=== PATIENT | male | born 1985 | race Two or more races ===

== ENCOUNTER 2017-01-07 19:04 | Emergency (ER) | payer SELFPAY ==
[~2017-01-07] VITALS: Ht 180.3 cm; Wt 72.6 kg
[2017-01-07 19:05] VITALS: BP 140/70
[2017-01-07 20:00] LABS: MEAN CORPUSCULAR HEMOGLOBIN 33.7 PG (27.0-31.0); MEAN CORPUSCULAR HGB CONC 36.3 G/DL (32.0-36.0); MEAN CORPUSCULAR VOLUME 93 FL (80-99); MEAN PLATELET VOLUME 7.1 FL (6.5-10.1); PLATELET COUNT 214 K/UL (150-450); RED BLOOD COUNT 4.69 M/UL (4.70-6.10); RED CELL DISTRIBUTION WIDTH 11.3 % (11.6-14.8); WHITE BLOOD COUNT 21.5 K/UL (4.8-10.8)
--- NOTE | 2017-01-07 20:01 | Emergency Room Report ---
History of Present Illness General Chief Complaint: General Complaint Source: EMS (LOLA CARMICHAEL D.O.) Present Illness HPI Patient presents by paramedics and police department for bizarre behavior Patient himself is nonverbal with the staff or myself This does limit the history of present illness Patient makes eye contact and essentially stares off to the right side Unknown regarding drug abuse unknown regarding psychiatric pathology Paramedics cannot report any obvious trauma at the scene (LOLA CARMICHAEL D.O.) Allergies: Coded Allergies: UNABLE TO ASSESS (Unverified , 01/07/17) Patient History Past Medical History: see triage record Pertinent Family History: none Reviewed Nursing Documentation: PMH: Agreed, PSxH: Agreed (LOLA CARMICHAEL D.O.) Nursing Documentation-PMH Past Medical History Deferred: Pt Cognitively Impaired (LOLA CARMICHAEL D.O.) Review of Systems All Other Systems: limited - Other than the ones mentioned in the history of present illness all others are reviewed however they do stay limited due to the patient's mental status (LOLA CARMICHAEL D.O.) Physical Exam Vital Signs Date Time Temp Pulse Resp B/P Pulse Ox O2 Delivery O2 Flow Rate FiO2 01/07/17 19:01 97.9 136 20 140/70 98 Room Air Sp02 EP Interpretation: reviewed, normal General Appearance: no apparent distress Head: normocephalic, atraumatic Eyes: bilateral eye EOMI, bilateral eye PERRL ENT: normal pharynx, no angioedema Neck: supple Respiratory: lungs clear Cardiovascular #1: regular rate, rhythm, no edema Gastrointestinal: non tender, soft Musculoskeletal: other - Patient required to be in restraints upon arrival no obvious focal deficit Neurologic: other - Patient is not verbal with the staff is uncooperative does not follow commands GCS is difficult to evaluate, , Psychiatric: other - agitated Skin: normal color, no rash Lymphatic: no adenopathy (LOLA CARMICHAEL D.O.) Medical Decision Making Diagnostic Impression: Primary Impression: Psychosis Qualified Codes: F23 - Brief psychotic disorder Additional Impressions: Methamphetamine abuse Leukocytosis Qualified Codes: D72.829 - Elevated white blood cell count, unspecified ER Course Patient signed out to me. He came in very agitated. Had to be restrained and given medication. His heart rate was very high initially. Now much improved. He is positive for methamphetamine. Since he's been here, I was able to remove his restraints and he has been cooperative. No suicidal thoughts or homicidal thought. His leukocytosis probably secondary to agitation and stress response. No evidence of infection. He is not suicidal or homicidal. No hallucination now. We'll discharge in the morning This patient is a chronic risk of self injury due to poor impulse control, limited coping skills, and judgment intermittently impaired by intoxication. I believe that the available clinical evidence to suggest that these characteristics derived primarily from personality disorder and are likely very stable over time. Hospitalization would likely attenuate risk of self-harm only during senior care period, without lasting risk reduction. Serious self-harm , while possible, would likely be inadvertent, and because of impulsivity, and foreseeable. For these reasons, I do not believe hospitalization would provide meaningful reduction in risk of self-harm. (DRISS AVALOS M.D.) Last Vital Signs Date Time Temp Pulse Resp B/P Pulse Ox O2 Delivery O2 Flow Rate FiO2 01/07/17 19:05 97.9 132 20 140/70 98 Room Air (LOLA CARMICHAEL D.O.) Status: improved (DRISS AVALOS M.D.) Disposition: HOME, SELF-CARE Condition: Stable Additional Instructions: Abstain from drugs and alcohol. Followup with your [facility] in 2 to 3 days. Followup with rehabilitation in 2-3 days. Return if worse. LOLA CARMICHAEL D.O. Jan 07, 2017 20:01 DRISS AVALOS M.D. Jan 08, 2017 00:43
[2017-01-07 20:18] LABS: ACETAMINOPHEN < 10 ug/mL (10-30); ALANINE AMINOTRANSFERASE 50 U/L (3-41); ALBUMIN/GLOBULIN RATIO 1.5 (1.0-2.7); ALCOHOL < 10 mg/dL; ANION GAP 15 (5-15); ASPARTATE AMINO TRANSFERASE 116 U/L (5-40); CALCIUM 10.5 mg/dL (8.6-10.2); CARBON DIOXIDE 28 mEQ/L (20-30); CHLORIDE 99 mEQ/L (98-107); CREATININE 1.3 mg/dL (0.7-1.2); GLOMERULAR FILTRATION RATE > 60 mL/min (>60); HEMOLYSIS 4; SODIUM 142 mEQ/L (135-145); TOTAL PROTEIN 8.3 g/dL (6.6-8.7)
[2017-01-07 20:48] LABS: BAND NEUTROPHILS % (MANUAL) 0 % (0-8); BASOPHILS % (MANUAL) 0 % (0-2); EOSINOPHILS % (MANUAL) 0 % (0-3); LYMPHOCYTES % (MANUAL) 15 % (20-45); NEUTROPHILS % (MANUAL) 76 % (45-75); PLATELET ESTIMATE ADEQUATE; PLATELET MORPHOLOGY NORMAL; TOTAL CELLS COUNTED 100
[2017-01-07 21:05] VITALS: BP 142/81
[2017-01-07] MEDS ORDERED: LORazepam Inj 2mg/ml 1ml IV ONE (22:00)
[2017-01-07 23:05] VITALS: BP 148/78
[2017-01-08 01:05] VITALS: BP 149/74
[2017-01-08 03:05] VITALS: BP 145/84
[2017-01-08 05:05] VITALS: BP 144/79
[2017-01-08 05:20] VITALS: BP 145/81
== END 2017-01-08 05:20 | disposition home or self-care (01) ==
LOC: EDBD 19:04 → EMR 19:35
DX: F23 Brief psychotic disorder (principal); F15.10 Other stimulant abuse, uncomplicated; D72.829 Elevated white blood cell count, unspecified
CPT/HCPCS: 36415; 80053; 80300; 85007; 85025; 96374; 96375; 99284; G0480; 80329